=== PATIENT | male | born 1950 | race Caucasian/White ===

== ENCOUNTER 2017-03-08 09:24 | Outpatient (CLI) | payer MEDICARE, OTHER ==
[~2017-03-08] VITALS: Ht 175.3 cm; Wt 97.5 kg
[2017-03-08 09:46] VITALS: BP 124/96
[2017-03-08] MEDS ORDERED: SOTA80TA PO (09:59)
[2017-03-08] MEDS ORDERED: HYDR-3924 PO (15:02)
[2017-03-08] MEDS ORDERED: ALLO300T2 PO (15:02)
[2017-03-08] MEDS ORDERED: FERR-84 PO (15:02)
[2017-03-08] MEDS ORDERED: FURO-124 PO (15:02)
[2017-03-08] MEDS ORDERED: METO-333 PO (15:02)
[2017-03-08] MEDS ORDERED: PRAV40TA2 PO (15:02)
[2017-03-08] MEDS ORDERED: CETI10TA17 PO (15:02)
[2017-03-08] MEDS ORDERED: OMEP20TA33 PO (15:02)
[2017-03-08] MEDS ORDERED: CALC-6 PO (15:02)
[2017-03-08] MEDS ORDERED: FOSI10TA3 PO (15:02)
[2017-03-08] MEDS ORDERED: ISM60TCR PO (15:02)
[2017-03-08] MEDS ORDERED: CITA20TA7 PO (15:02)
[2017-03-08] MEDS ORDERED: ASPI-586 PO (15:02)
[2017-03-08] MEDS ORDERED: POTA-51 PO (15:02)
[2017-03-08] MEDS ORDERED: OXYC-465 PO (15:02)
== END 2017-03-08 10:20 | disposition home or self-care (01) ==
LOC: PREOP 09:24
PROVIDERS: ATTEND Orthopaedic Surgery
DX: Z01.818 Encounter for other preprocedural examination (principal); M48.061 Spinal stenosis, lumbar region without neurogenic claudication
CPT/HCPCS: 87081